=== PATIENT | male | born 1970 ===

== ENCOUNTER 2020-03-07 20:05 | Emergency (ER) | payer BC ==
--- NOTE | 2020-03-07 22:20 | ER ---
Nurse's Notes [facility] Name: Tanner Sweeney Age: 50 yrs Sex: Male : 1970 Arrival Date: 03/07/2020 Time: 20:17 Bed 23 [facility] MD: Diagnosis: Acute bronchitis Presentation: 03/07 20:39 Chief complaint: Patient states: Cough, irritated throat for 1 day. OTC cough med. not ll1 helping. Coronavirus screen: Client denies travel out of the [place] in the last 14 days. cough unrelated to allergies, sore throat, Client presents with at least one sign or symptom that may indicate coronavirus-19. Standard/surgical mask placed on the client. Ebola Screen: Patient denies travel to an Ebola-affected area in the 21 days before illness onset. Initial Sepsis Screen: Does the patient meet any 2 criteria? HR > 90 bpm. No. Patient's initial sepsis screen is negative. Does the patient have a suspected source of infection? Yes: Productive cough/pneumonia. Risk Assessment: Do you want to hurt yourself or someone else? Patient reports no desire to harm self or others. Onset of symptoms was March 07, 2020. 20:39 Method Of Arrival: Ambulatory ll1 20:39 Acuity: ISELA 4 ll1 Historical: - Allergies: 20:39 No Known Allergies; ll1 - PMHx: 20:39 Hypertension; ll1 - PSHx: 20:39 None; ll1 - Immunization history:: Flu vaccine is not up to date. - Social history:: Smoking status: Patient denies any tobacco usage or history of. Patient/guardian denies using alcohol, street drugs, The patient lives with family. - Family history:: not pertinent. Screenin:39 Abuse screen: Denies threats or abuse. Denies injuries from another. Nutritional sg screening: No deficits noted. Tuberculosis screening: No symptoms or risk factors identified. Never had TB. Fall Risk None identified. Assessment: 20:39 General: Appears in no apparent distress. well groomed, well developed, well nourished, sg Behavior is calm, cooperative, appropriate for age. Pain: Complains of pain in sore throat Quality of pain is described as aching. Neuro: Level of Consciousness is awake, alert, obeys commands, Oriented to person, place, time, Speech is normal, Facial symmetry appears normal. Cardiovascular: Capillary refill is brisk in bilateral Patient's skin is warm and dry. Chest pain is denied. Respiratory: Airway is patent Respiratory effort is even, unlabored, Respiratory pattern is regular, symmetrical. GI: Abdomen is round non-distended. : No signs and/or symptoms were reported regarding the genitourinary system. EENT: Nares are clear bilaterally Oral mucosa is moist. Throat is pink. Derm: Skin is intact, is healthy with good turgor, Skin is dry, Skin is normal, Skin temperature is warm. Musculoskeletal: Circulation, motion, and sensation intact. Range of motion: intact in all extremities. Vital Signs: 20:39 BP 125 / 95; Pulse 93; Resp 18; Temp 98.5; Pulse Ox 96% on R/A; Weight 81.65 kg; Height ll1 5 ft. 8 in. (172.72 cm); Pain 3/10; 20:39 Body Mass Index 27.37 (81.65 kg, 172.72 cm) ll1 ED Course: 09:48 COVID swab sent to lab. Flu and/or RSV swab sent to lab. Strep swab sent to lab. sg 20:17 Patient arrived in ED. rg4 20:36 Arm band placed on. ll1 20:41 Triage completed. ll1 21:49 Costa Knight RN is Primary Nurse. 21:51 Evonne Park MD is Attending Physician. ma2 Administered Medications: No medications were administered Outcome: 22:20 Discharge ordered by . ma2 22:28 Patient left the ED. sg Addendum: 03/12/2020 07:41 Addendum: COVID-19 Result: Negative result given to RN to notify pt. Attempted to i w contact pt regarding negative COVID-19 swab results. Left voice mail. 08:54 Addendum: COVID-19 Result: Negative result given to RN to notify pt. Notified pt of e b negative COVID 19 swab results. Pt advised that even with a negative test result they should remain in isolation until symptom free for 3 days without medication. Pt also advised to return to the ED for worsening symptoms. Signatures: Costa Knight RN RN Cassandra Roberts RN RN Marlee Aragon rg4 Evonne Park MD MD ma2 Teodora Arroyo Lynsay, RN RN ll1
--- NOTE | 2020-03-07 22:20 | EDPHYS ---
Physician Documentation [facility] Name: Tanner Sweeney Age: 50 yrs Sex: Male : 1970 Arrival Date: 03/07/2020 Time: 20:17 Bed 23 Private MD: ED Physician Evonne Park HPI: 03/07 22:18 This 50 yrs old Male presents to ER via Ambulatory with complaints of Cough, Sore ma2 Throat. 22:18 The patient or guardian reports cough. Onset: The symptoms/episode began/occurred ma2 gradually, 1 day(s) ago. Severity of symptoms: At their worst the symptoms were very mild, in the emergency department the symptoms have resolved. Associated signs and symptoms: Pertinent negatives: diarrhea, fever, rhinorrhea, vomiting. The patient has not experienced similar symptoms in the past. Historical: - Allergies: 20:39 No Known Allergies; ll1 - PMHx: 20:39 Hypertension; ll1 - PSHx: 20:39 None; ll1 - Immunization history:: Flu vaccine is not up to date. - Social history:: Smoking status: Patient denies any tobacco usage or history of. Patient/guardian denies using alcohol, street drugs, The patient lives with family. - Family history:: not pertinent. ROS: 22:18 Constitutional: Negative for fever, chills, and weight loss. ma2 22:18 All other systems are negative. Exam: 22:18 Constitutional: This is a well developed, well nourished patient who is awake, alert, ma2 and in no acute distress. Head/Face: Normocephalic, atraumatic. Eyes: Pupils equal round and reactive to light, extra-ocular motions intact. Lids and lashes normal. Conjunctiva and sclera are non-icteric and not injected. Cornea within normal limits. Periorbital areas with no swelling, redness, or edema. ENT: Nares patent. No nasal discharge, no septal abnormalities noted. Tympanic membranes are normal and external auditory canals are clear. Oropharynx with no redness, swelling, or masses, exudates, or evidence of obstruction, uvula midline. Mucous membranes moist. Neck: Trachea midline, no thyromegaly or masses palpated, and no cervical lymphadenopathy. Supple, full range of motion without nuchal rigidity, or vertebral point tenderness. No Meningismus. Chest/axilla: Normal chest wall appearance and motion. Nontender with no deformity. No lesions are appreciated. Cardiovascular: Regular rate and rhythm with a normal S1 and S2. No gallops, murmurs, or rubs. Normal PMI, no JVD. No pulse deficits. Respiratory: Lungs have equal breath sounds bilaterally, clear to auscultation and percussion. No rales, rhonchi or wheezes noted. No increased work of breathing, no retractions or nasal flaring. Abdomen/GI: Soft, non-tender, with normal bowel sounds. No distension or tympany. No guarding or rebound. No evidence of tenderness throughout. Skin: Warm, dry with normal turgor. Normal color with no rashes, no lesions, and no evidence of cellulitis. MS/ Extremity: Pulses equal, no cyanosis. Neurovascular intact. Full, normal range of motion. Neuro: Awake and alert, GCS 15, oriented to person, place, time, and situation. Cranial nerves II-XII grossly intact. Motor strength 5/5 in all extremities. Sensory grossly intact. Cerebellar exam normal. Normal gait. Vital Signs: 20:39 BP 125 / 95; Pulse 93; Resp 18; Temp 98.5; Pulse Ox 96% on R/A; Weight 81.65 kg; Height ll1 5 ft. 8 in. (172.72 cm); Pain 3/10; 20:39 Body Mass Index 27.37 (81.65 kg, 172.72 cm) ll1 MDM: 21:51 Patient medically screened. ma2 22:18 Differential Diagnosis: Bronchitis Influenza Upper Respiratory Infection Sinusitis. ma2 Data reviewed: vital signs, nurses notes. Counseling: I had a detailed discussion with the patient and/or guardian regarding: the historical points, exam findings, and any diagnostic results supporting the discharge/admit diagnosis, the presence of at least one elevated blood pressure reading (>120/80) during this emergency department visit, the need for outpatient follow up. Response to treatment: the patient's symptoms have markedly improved after treatment. 03/07 20:42 Order name: Strep snw 03/07 20:42 Order name: Flu snw 03/07 20:42 Order name: COVID-19 snw Administered Medications: No medications were administered Disposition: 03/07/20 22:20 Discharged to Home. Impression: Acute bronchitis. - Condition is Stable. - Discharge Instructions: Acute Bronchitis, Adult. - Prescriptions for Zithromax Z- Mu 250 mg Oral Tablet - take 1 tablet by ORAL route as directed for 5 days Day 1 - take two (2) tablets one time. Day 2, 3, 4 , 5 take one (1) tablet once daily.; 6 tablet. Medrol (Mu) 4 mg Oral Tablets, Dose Pack - take 1 tablet by ORAL route as directed - follow package instructions; 1 packet. Albuterol Sulfate 90 mcg/actuation - inhale 1-2 puff by INHALATION route every 4-6 hours; 1 Inhaler. - Medication Reconciliation Form, Thank You Letter, Antibiotic Education, Prescription Opioid Use form. - Follow up: Private Physician; When: Tomorrow; Reason: If symptoms return, Continuance of care. - Notes: COVID 19 SWAB RESULTS PENDING AT THIS TIME. PLEASE SELF QUARANTINE FOR 14 DAYS OR UNTIL INSTRUCTED OTHERWISE. RESULTS WILL BE CALLED TO YOUR PHONE NUMBER LISTED ON YOUR FILE, IT IS ESTIMATED TO TAKE 2-4 DAYS FOR RESULTS TO POST. THANK YOU Signatures: Dispatcher [employer] EDCosta Mejía RN RN sg Evonne Park MD MD ma2 Debbie Motta RN RN ll1 Corrections: (The following items were deleted from the chart) 22:28 22:20 03/07/2020 22:20 Discharged to Home. Impression: Acute bronchitis. Condition is sg Stable. Forms are Medication Reconciliation Form, Thank You Letter, Antibiotic Education, Prescription Opioid Use. Follow up: Private Physician; When: Tomorrow; Reason: If symptoms return, Continuance of care. anastasia
[2020-03-07 22:32] VITALS: BP 125/95; TEMP 98.5; O2SAT 96
== END 2020-03-07 22:28 | disposition home or self-care (01) ==
LOC: ER 20:05
DX: J20.9 Acute bronchitis, unspecified (principal); Z20.828 Contact with and (suspected) exposure to other viral communicable diseases; I10 Essential (primary) hypertension
CPT/HCPCS: 87070; 87081; 87804 ×2; 99282; U0002